=== PATIENT | male | born 1980 | race Caucasian/White ===

== ENCOUNTER 2016-10-05 23:03 | Emergency (ER) | payer BC ==
[~2016-10-05] VITALS: Ht 170.2 cm; Wt 99.8 kg
[2016-10-05 23:03] VITALS: BP 135/71; PULSE 84; RESP 19; TEMP 98.8; O2SAT 96
--- NOTE | 2016-10-05 23:03 | NUR ---
BROUGHT BACK TO BED #7 AND TRIAGED. REPORT GIVEN TO LEA
--- NOTE | 2016-10-05 23:10 | NUR ---
Patient AAO x4, sitting in bed, c/o left earache 12/18 x 2 weeks. Patient states he might have a cotton swab in ear. No acute distress noted. Will continue to monitor.
--- NOTE | 2016-10-05 23:16 | NUR ---
ER at bedside examining patient.
[2016-10-05 23:28] VITALS: BP 130/70; PULSE 83; RESP 18; TEMP 98.8; O2SAT 96
--- NOTE | 2016-10-05 23:28 | NUR ---
Patient given written and verbal discharge instructions and verbalizes understanding. ER MD discussed with patient the results and treatment provided. Patient in stable condition. ID arm band removed. Rx of Ofloxacin given. Patient educated on pain management and to follow up with PMD. Pain Scale 0/10. Opportunity for questions provided and answered.
== END 2016-10-05 23:28 | disposition home or self-care (01) ==
LOC: SED 23:03
DX: T16.1XXA Foreign body in right ear, initial encounter (principal); H92.01 Otalgia, right ear; W45.8XXA Other foreign body or object entering through skin, initial encounter; Y93.89 Activity, other specified; Y99.8 Other external cause status; Y92.89 Other specified places as the place of occurrence of the external cause
CPT/HCPCS: 99283

== ENCOUNTER 2020-02-07 12:00 | Emergency (ER) | payer BC ==
[~2020-02-07] VITALS: Ht 172.7 cm; Wt 114.8 kg
[2020-02-07 12:12] VITALS: BP_SYST 172
--- NOTE | 2020-02-07 12:12 | NUR ---
Patient to ER bed 06 to gown for evaluation. Side rails up.
--- NOTE | 2020-02-07 12:14 | NUR ---
Patient arrived in the ED c/o right hand pain that started yesterday, possible insect bite. Patient stated his removed a black thing yesterday. Denied any chest pain or shortness of breath. Denied any fevers, chills, nausea or vomiting. Patient is alert and oriented x4, respirations even and unlabored, speaking in full sentences, and ambulating with a steady gait. VSS, pain level 6-9/10 - Taking Tylenol for it, no relief. Informed of the approximate wait time. Instructed to notify ED staff for any changes in condition or worsening of symptoms while waiting to be seen by an ED provider. Patient verbalized understanding.
--- NOTE | 2020-02-07 12:17 | NUR ---
GIACNARLO Miguel at bedside examining patient.
[2020-02-07] MEDS ORDERED: PREDNISONE 20 MG TABLET PO ONE (12:30)
[2020-02-07] MEDS ORDERED: IBUPROFEN 600 MG TABLET PO ONE (12:30)
[2020-02-07 12:33] VITALS: BP_SYST 168
--- NOTE | 2020-02-07 12:35 | NUR ---
Patient given written and verbal discharge instructions and verbalizes understanding. ER MD discussed with patient the results and treatment provided. Patient in stable condition. ID arm band removed. Rx of Ibuprofen and Benadryl given. Patient educated on pain management and to follow up with PMD. Pain Scale 2/10. Opportunity for questions provided and answered. Medication side effect fact sheet provided.
== END 2020-02-07 12:35 | disposition home or self-care (01) ==
LOC: SED 12:00
DX: T78.40XA Allergy, unspecified, initial encounter (principal); I10 Essential (primary) hypertension; W57.XXXA Bitten or stung by nonvenomous insect and other nonvenomous arthropods, initial encounter
CPT/HCPCS: 99283; J7512

== ENCOUNTER 2020-06-05 09:52 | Emergency (ER) | payer BC ==
[~2020-06-05] VITALS: Ht 170.2 cm; Wt 120.2 kg
--- NOTE | 2020-06-05 10:35 | NUR ---
SEEN BY DR WINCHESTER PRIOR TO TRIAGED, PT IN ULTRASOUND
--- NOTE | 2020-06-05 10:45 | NUR ---
PLACED IN HALLWAY
[2020-06-05] MEDS ORDERED: NAPR-690 PO (10:50)
--- NOTE | 2020-06-05 10:58 | NUR ---
Patient given written and verbal discharge instructions and verbalizes understanding. ER MD discussed with patient the results and treatment provided. Patient in stable condition. ID arm band removed. Rx of NONE given. Patient educated on pain management and to follow up with PMD. Pain Scale 0/10 Opportunity for questions provided and answered. Medication side effect fact sheet provided.
[2020-06-05 11:01] VITALS: BP_SYST 145
== END 2020-06-05 11:01 | disposition home or self-care (01) ==
LOC: SED 09:52
DX: S83.92XA Sprain of unspecified site of left knee, initial encounter (principal); I10 Essential (primary) hypertension; W18.39XA Other fall on same level, initial encounter; Y93.89 Activity, other specified; Y92.89 Other specified places as the place of occurrence of the external cause; Y99.8 Other external cause status
CPT/HCPCS: 73590-TC; 93971; 99284

== ENCOUNTER 2020-08-10 11:54 | Emergency (ER) | payer BC, SELFPAY ==
[~2020-08-10] VITALS: Ht 170.2 cm; Wt 117.9 kg
[~2020-08-10 11:54] MED LIST: NAPR-690 PO
[2020-08-10 11:56] VITALS: BP_SYST 164
[2020-08-10 12:29] LABS: BASOPHILS % (AUTO) 0.4 % (0.0-2.0); EOSINOPHILS # (AUTO) 0.1 K/uL (0.0-0.4); HEMATOCRIT 39.9 % (36-54); HEMOGLOBIN 12.9 g/dL (14.0-18.0); LYMPHOCYTES % (AUTO) 22.2 % (20.5-51.5); MEAN CORPUSCULAR HEMOGLOBIN 28 pg (27-31); MEAN CORPUSCULAR HGB CONC 32 % (32-36); MEAN CORPUSCULAR VOLUME 87 fL (79.0-98.0); MONOCYTES # (AUTO) 0.5 K/uL (0.0-1.0); NEUTROPHILS # (AUTO) 6.3 K/uL (1.8-7.7); NEUTROPHILS % (AUTO) 70.4 % (40.0-70.0); PLATELET COUNT (AUTO) 255 K/uL (130-430); RED BLOOD CELL COUNT(AUTO) 4.56 MIL/uL (4.2-6.2); RED CELL DISTRIBUTION WIDTH 14.4 % (9.0-15.0); WHITE BLOOD COUNT (AUTO) 8.9 K/uL (4.8-10.8)
[2020-08-10] MEDS ORDERED: NACL 0.9% 1,000 ML IV ONE (12:30)
[2020-08-10] MEDS ORDERED: LORazepam 2 MG/ML VIAL IVP ONE (12:30)
[2020-08-10 12:41] LABS: ANION GAP 10 (5-15); CALCIUM 8.1 mg/dL (8.4-11.0); CHLORIDE 100 mmol/L (98-107); CREATININE 0.84 mg/dL (0.55-1.30); GLUCOSE 89 mg/dL (70-99); POTASSIUM 3.4 mmol/L (3.5-5.1); SODIUM SERUM 136 mmol/L (136-145); UREA NITROGEN, BLOOD 15 mg/dL (8-21)
[2020-08-10 12:45] LABS: GFR AFRICAN AMERICAN 132 mL/min (>90)
[2020-08-10 12:52] LABS: ALANINE AMINOTRANSFERASE 34 U/L (12-78); ALBUMIN 3.8 g/dL (3.4-4.8); ASPARTATE AMINOTRANSFERASE 22 U/L (10-37); TOTAL BILIRUBIN 0.3 mg/dL (0.0-1.0)
[2020-08-10] MEDS ORDERED: ALPR0.5T PO (13:05)
[2020-08-10] MEDS ORDERED: cloNIDine HCL 0.1 MG TABLET ONE (13:14)
[2020-08-10] MEDS ORDERED: cloNIDine HCL 0.1 MG TABLET PO ONE (13:15)
[2020-08-10 13:32] VITALS: BP_SYST 145
== END 2020-08-10 13:32 | disposition home or self-care (01) ==
LOC: SED 11:54
DX: F41.9 Anxiety disorder, unspecified (principal); I10 Essential (primary) hypertension; F17.200 Nicotine dependence, unspecified, uncomplicated; F12.90 Cannabis use, unspecified, uncomplicated; Z88.6 Allergy status to analgesic agent
CPT/HCPCS: 36415; 71045; 80053; 84484; 85025; 93005; 96361; 96374; 99285; J2060; J7030